=== PATIENT | female | born 1980 | race Caucasian/White ===

== ENCOUNTER 2024-01-25 10:02 | Outpatient (AMB) | payer BC, SELFPAY ==
--- NOTE | 2024-01-25 10:08 | MHC.OFFVIS ---
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 She normally gets regular periods and her previous normal. Before this was November 28 and it lasts 5 days and is normal to her. She has a history of 3 C sections with grown children and a tubal ligation done in [place]. 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 However this bleeding is crazy and is what she introduced at the beginning of the visit as why she is here. She started having some spotting at the beginning on November 25 but then she had an abnormal discharge and it has come and gone sometimes it is heavy sometimes it is light for the entire month. Patient is here with her middle adult daughter who she relied on for initial translation but after the 1st couple of sentences communication was done directly with myself in Maltese. [facility] Surgical History (Updated 01/25/24 @ 10:58 by Sharonda Gordillo CNM) History of tubal ligation History of section, low transverse Hx of abdominoplasty Social History (Updated 01/25/24 @ 10:13 by Gerhard Sargent [facility]) Alcohol intake: never Patient Tobacco Use Status: Never used Tobacco Sexually active: Yes Female Reproductive History Menstrual Age of Menarche: 9 Duration of menses: 3-5 days Date of last menstrual period: 12/27/23 control method: none Total pregnancies: 3 Full term: 3 Date of last pap smear: 01/30/14 (negative,per patient) History of abnormal pap smear: No History of abnormal mammogram: No (no previous mamm.) Physical Exam Vital Signs: Last Vital Signs BP 122/70 01/25/24 10:09 BMI result Body Mass Index 27.3 Const General: healthy appearing, comfortable, no acute distress, well developed and alert Nutritional Appearance: average body habitus Orientation/consciousness: patient oriented x3 Limitations: no limitations HEENT Head: Yes normocephalic Neck Neck: Yes normal visual inspection Chest Chest palpation & inspection: normal inspection of the chest Breast/axilla inspection: normal inspection of the breasts and normal inspection of the axillae Breast/axilla palpation: normal palpation of the breasts and normal palpation of the axillae Resp Effort & Inspection: normal respiratory effort GI Inspection: Yes normal to inspection, No Abdominal wall edema and No distended Palpation (GI): Soft to palpation and nontender Other: Patient has well-healed abdominal plasty scar. External exam within normal limits moderate amount of very dark blood emanating from cervix. Cervix long close thick nulliparous pink smooth mobile nontender uterus small anteverted mobile nontender adnexa nontender good tone with Kegel. General: Yes bladder normal to palpation External Female Exam: normal external appearance and normal appearance of the urethra Speculum Exam - Vagina: normal appearance of the vagina, normal palpation and normal vaginal discharge Speculum Exam - Cervix: normal appearance of the cervix, normal palpation and nontender Bimanual exam- vagina & uterus: normal bimanual exam, normal palpation, uterine size normal, bladder normal to palpation, consistency normal, normal palpation, uterine mobility normal, uterine shape normal, No Cervical tenderness present, non-tender and no cervical motion tenderness Bimanual Exam- Adnexa, other: normal adnexae, no masses, normal and No adnexal tenderness Neuro General: patient oriented x3 Assessment & Plan Assessment & Plan (1) Abnormal uterine bleeding (AUB): Code(s): N93.9 - Abnormal uterine and vaginal bleeding, unspecified Category: Medical (2) Cervical cancer screening: Code(s): Z12.4 - Encounter for screening for malignant neoplasm of cervix Category: Medical (3) Breast cancer screening: Code(s): Z12.39 - Encounter for other screening for malignant neoplasm of breast Category: Medical (4) Encounter for screening examination for sexually transmitted disease: Code(s): Z11.3 - Encounter for screening for infections with a predominantly sexual mode of transmission Category: Medical (5) Perimenopausal symptoms: Code(s): N95.1 - Menopausal and female climacteric states Category: Medical (6) History of tubal ligation: Code(s): Z98.51 - Tubal ligation status Category: Surgical (7) History of section, low transverse: Code(s): Z98.891 - History of uterine scar from previous surgery Category: Surgical (8) Hx of abdominoplasty: Code(s): Z98.890 - Other specified postprocedural states Category: Surgical Plan -----Discussed in this visit the following: healthy balanced diet, regular and consistent exercise, getting recommended health screens, doing the best she can for her particular health concerns, kegel exercises, pap smear screening and followup recommendations, mammography screening and SBE, normal changes in cycles in her life stage--- .Discussed her pattern of abnormal bleeding and the usual evaluation for it. Discussed the importance of ruling out any abnormal cells in her endometrium that are contributing to this. Discussed the ways of evaluating it, including pelvic ultrasound if appropriate, and an endometrial biopsy if appropriate. Also discussed the common causes of abnormal bleeding, including cancerous or precancerous cells, endometrial hyperplasia, anovulatory cycles, fibroids, and other potential causes. Discussed evaluation methods including endometrial biopsy to check the cells in the endometrial cavity, pelvic ultrasound to rule out any other abnormalities including fibroids, and any lab work if appropriate. Also discussed possible treatment to deal with the abnormal bleeding which may include medications, depending on age and other factors, that include control pills use of Provera or other medications, and Mirena IUDs. In certain cases there may be other treatment plans discussed as well. So her evaluation has started today with pelvic exam testing for infections and Pap smear though I did tell her the Pap may be inadequate because of her bleeding. She will have a pelvic ultrasound and in addition her screening mammogram and then she and I will have a visit after the pelvic ultrasound and I told her to anticipate that she will probably need an endometrial biopsy then and I did explain it to her. 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 Orders: Orders US pelvic and transvaginal Today N93.9 - Abnormal uterine and vaginal bleeding, unspecified, N95.1 - Menopausal and female climacteric states, Z11.3 - Encounter for screening for infections with a predominantly sexual mode of transmission, Z12.39 - Encounter for other screening for malignant neoplasm of breast, Z12.4 - Encounter for screening for malignant neoplasm of cervix, Z98.51 - Tubal ligation status, Z98.890 - Other specified postprocedural states, Z98.891 - History of uterine scar from previous surgery MM tomosynthesis screening BI Today N93.9 - Abnormal uterine and vaginal bleeding, unspecified, N95.1 - Menopausal and female climacteric states, Z11.3 - Encounter for screening for infections with a predominantly sexual mode of transmission, Z12.31 - Encounter for screening mammogram for malignant neoplasm of breast, Z12.39 - Encounter for other screening for malignant neoplasm of breast, Z12.4 - Encounter for screening for malignant neoplasm of cervix, Z98.51 - Tubal ligation status, Z98.890 - Other specified postprocedural states, Z98.891 - History of uterine scar from previous surgery Coding Level of Care Code New Pt Prev Care 40-64y(08168) Diagnoses Abnormal uterine bleeding (AUB) N93.9 Cervical cancer screening Z12.4 Breast cancer screening Z12.39 Encounter for screening examination for sexually transmitted disease Z11.3 Perimenopausal symptoms N95.1 History of tubal ligation Z98.51 History of section, low transverse Z98.891 Hx of abdominoplasty Z98.890
[2024-01-25 10:09] VITALS: BP 122/70; BMI 27.3
== END 2024-01-25 11:08 | disposition home or self-care (01) ==
PROVIDERS: Visit Provider Advanced Practice Midwife
DX: Z01.419 Encounter for gynecological examination (general) (routine) without abnormal findings (principal); N93.9 Abnormal uterine and vaginal bleeding, unspecified
CPT/HCPCS: 99386

== ENCOUNTER 2024-01-25 10:02 | Outpatient (REF) | payer BC, SELFPAY ==
[2024-01-26 15:06] LABS: BV Int Neg Control Negative (Negative); BV Int Pos Control Positive (Positive)
[2024-01-26 16:41] LABS: CT PCR NOT DETECTED (Not Detect.); NG PCR NOT DETECTED (Not Detect.)
[2024-02-03 03:37] LABS: HPV mRNA E6/E7 rflx Not Detected (Not Detected)
== END 2024-01-25 10:03 | disposition home or self-care (01) ==
LOC: HO.LAB 10:02
PROVIDERS: Visit Provider Advanced Practice Midwife
DX: Z01.419 Encounter for gynecological examination (general) (routine) without abnormal findings (principal); Z20.2 Contact with and (suspected) exposure to infections with a predominantly sexual mode of transmission
CPT/HCPCS: 0353U; 87480; 87510; 87624; 87660; 88142

== ENCOUNTER 2024-02-03 13:46 | Outpatient (REF) | payer BC, SELFPAY ==
--- NOTE | ~2024-02-03 | US_ITS ---
EXAMINATION: US PELVIS COMPLETE CLINICAL INFORMATION: Abnormal uterine bleeding COMPARISON: None TECHNIQUE: Transabdominal and transvaginal imaging was performed. FINDINGS: The uterus is of normal size and echogenicity measuring 12.0 x 5.2 x 4.9 cm. The endometrium measures at least 1.8 cm in thickness, recommend correlation with phase of menstrual cycle. Nabothian cysts in the cervix. Both ovaries are of normal echogenicity. The right measures 4.3 x 4.2 x 3.3 cm for a volume of 31 mL and is remarkable for a 3.4 cm benign functional cyst, no follow-up imaging recommended. The left measures 1.3 x 1.9 x 1.3 cm for a volume of 1.7 mL. There is no pelvic free fluid. US/US pelvic and transvaginal IMPRESSION: The endometrium measures at least 1.8 cm in thickness, recommend correlation with phase of menstrual cycle.
[2024-02-03 14:23] LABS: Hematocrit 32.9 % (37.0-47.0); Hemoglobin 11.4 g/dl (12.0-16.0); Mean Corpuscular HGB Conc 34.7 g/dl (31.0-35.0); Mean Corpuscular Hemoglobin 29.8 pg (27.0-33.0); Mean Corpuscular Volume 86.1 fL (80.0-98.0); Mean Platelet Volume 10.7 fL (9.4-12.3); Platelet Count 199 X10*3/uL (160-400); Red Blood Count 3.82 X10*6/uL (4.20-5.50); Red Cell Distribution Width 13.4 % (11.0-16.0); White Blood Count 6.1 X10*3/uL (4.8-10.8)
[2024-02-03 15:05] LABS: HCG Quantitative < 2 mIU/mL; TSH reflex Free T4 1.19 uIU/mL (0.32-4.0)
[2024-02-05 05:24] LABS: Prolactin 16.4 ng/mL
== END 2024-02-03 13:47 | disposition home or self-care (01) ==
LOC: HO.US 13:46
PROVIDERS: Absent Provider Obstetrics & Gynecology; Visit Provider Advanced Practice Midwife
DX: Z11.3 Encounter for screening for infections with a predominantly sexual mode of transmission (principal); N93.9 Abnormal uterine and vaginal bleeding, unspecified; N95.1 Menopausal and female climacteric states; Z98.890 Other specified postprocedural states; Z98.51 Tubal ligation status; Z98.891 History of uterine scar from previous surgery; Z79.899 Other long term (current) drug therapy
CPT/HCPCS: 36415; 58100; 76830; 76856; 84146; 84443; 84702; 85027

== ENCOUNTER 2024-02-03 14:40 | Outpatient (AMB) | payer BC, SELFPAY ==
--- NOTE | 2024-02-03 15:09 | A.OFFVIS_ITS ---
Vital Signs 02/03/24 15:18 Height 5 ft 4 in Weight 158 lb 11.725 oz BMI 27.2 BP 108/66 Intake Visit Reasons: Follow up lab and ultrasound Telegraph Dispatcher Required: Yes Telegraph Dispatcher Language: Professor Of Mathematics Name: Virginie JEFFERSON Information Interpreted: non-clinical & clinical Feed Management Advisor: Feed Management Advisor Present (Virginie JEFFERSON) Accompanied by: Spouse Allergies No Known Allergies Allergy (Verified 02/03/24 15:19) HPI Comments Details: Presenting with 6 week history of heavy vaginal bleeding associated with passage of blood clots and pelvic cramping . Co testing done in 01/25 still pending Ultrasound done today reports not available H&H done today 11.4/32.9 TSH, hCG negative Prolactin pending [facility] Surgical History History of tubal ligation History of section, low transverse Hx of abdominoplasty Social History Alcohol intake: never Patient Tobacco Use Status: Never used Tobacco Female Reproductive History Menstrual Age of Menarche: 9 Review of Systems Const All systems reviewed & are unremarkable except as noted in HPI and below Card Reports as per HPI Resp Reports as per HPI GI Reports as per HPI and Reports no additional complaints Reports as per HPI Physical Exam Vital Signs: Last Vital Signs BP 108/66 02/03/24 15:18 BMI result Body Mass Index 27.2 Const General: cooperative, healthy appearing and comfortable Chest Chest palpation & inspection: normal inspection of the chest and normal palpation of entire chest wall Breast/axilla inspection: normal inspection of the breasts and normal inspection of the axillae Breast/axilla palpation: normal palpation of the breasts, normal palpation of the axillae and no axillary lymphadenopathy Resp Effort & Inspection: normal respiratory effort Auscultation: clear to auscultation bilaterally Percussion: percussion normal Cardio Palpation: normal PMI Rate: regular rate Rhythm: regular rhythm Heart sounds: no murmurs and no rubs Peripheral pulses: Peripheral pulses 2+ throughout GI Inspection: Yes normal to inspection Palpation (GI): Soft to palpation, nontender, no guarding, not rigid and No hepatosplenomegaly present Percussion: Yes normal to percussion Auscultation: normal bowel sounds Rectal Exam - Female: deferred General: Yes bladder normal to palpation External Female Exam: No lesion Speculum Exam - Vagina: normal appearance of the vagina, normal palpation, normal vaginal discharge and not erythematous Speculum Exam - Cervix: normal appearance of the cervix, normal palpation and Other cervical findings present (No evidence of active vaginal bleeding) Bimanual exam- vagina & uterus: normal bimanual exam, normal palpation, uterine size normal, bladder normal to palpation, consistency normal and normal palpation Bimanual Exam- Adnexa, other: normal adnexae, no masses and no tenderness Office Procedures Endometrial Biopsy Details: The patient was counseled regarding the indication and benefits of endometrial sampling to rule out endometrial pathology including not limited to endometrial hyperplasia or endometrial cancer and others; The alternatives (Either do nothing vs. hysteroscopy D&C) & the risks were discussed with the patient including but not limited: pain, uterine perforation, bleeding, infection, possible injury to bladder, bowel, ureter, possible need for blood transfusion with all its possible risks. The patient verbalized understanding all questions answered and signed consent. HCG quantitative done in the office was negative The patient was placed into the dorsal lithotomy position; a speculum was inserted in the vagina. Using aseptic technique for the procedure, the cervix was cleansed with Betadine. The anterior lip of the cervix was grasped with a single tooth tenaculum. The uterus was sounded to 7 cm with a 4 mm Pipelle was used. Tissues samples were obtained and placed in formalin, in a patient labeled container and sent to the pathology department. At the end of the procedure, there was minimal bleeding noted The patient tolerated the procedure well and was discharged in good condition with the following instructions: Nothing in the vagina until the bleeding stops. No sex until the bleeding stops, to call if any of the following occurs: fever (>100.4), flu-like symptoms, abdominal pain, heavy bleeding, four smelling vaginal discharge. The patient was instructed to schedule a Follow up appointment in 2 weeks to [facility] pathology results of the biopsy and treatment options. This note was generated with a voice recognition program. Some errors may have been overlooked during the review of this note. Sometimes these errors may affect the content or meaning of a given sentence. [id number] Biopsy Assessment & Plan Assessment & Plan (1) Abnormal uterine bleeding (AUB): Comment: With anemia Code(s): N93.9 - Abnormal uterine and vaginal bleeding, unspecified Category: Medical Plan: Provera 10 mg p.o. q.d. sent to the patient's pharmacy for 30 days. [id number] iron sulfate 325 mg p.o. q.d. recommended the patient Mammogram ordered. Co testing recent done, GC and chlamydia taken CBC, TSH, prolactin, HCG, and pelvic ultrasound ordered today. Discussed with the patient the different causes of abnormal bleeding including thyroid disorders, uterine and ovarian pathology, endometrial hyperplasia, carcinoma and other potential causes. Discussed with the patient the work up including CBC (to r/o anemia), TSH, prolactin, pelvic Ultrasound, endometrial biopsy to r/o endometrial pathology. EMB done, see procedure note. All questions answered and the patient verbalized understanding. Instructed the patient to call or go to emergency room in case of heavy vaginal bleeding and to schedule an appointment for an endometrial biopsy in 2 weeks. Orders: Orders AMB Endometrial Biopsy Today N93.9 - Abnormal uterine and vaginal bleeding, unspecified MM screening mammo BI Today Z12.31 - Encounter for screening mammogram for malignant neoplasm of breast CT NG by PCR Today N93.9 - Abnormal uterine and vaginal bleeding, unspecified Surgical Today N93.9 - Abnormal uterine and vaginal bleeding, unspecified Medications: New medroxyprogesterone (Provera) 10 mg PO DAILY 10 days 30 tabs 0RF Coding Level of Care Code Est Pt Level 3 (85600) Procedure Only Diagnoses Abnormal uterine bleeding (AUB) N93.9 CPT Codes Endometrial Biopsy - CPT: 85701-Mctsbawyekk Biopsy ([id number])
[2024-02-03 15:18] VITALS: BP 108/66; BMI 27.2
== END 2024-02-03 15:37 | disposition home or self-care (01) ==
LOC: HO.HWS 14:40
PROVIDERS: Visit Provider Obstetrics & Gynecology
DX: N93.9 Abnormal uterine and vaginal bleeding, unspecified (principal)
CPT/HCPCS: 58100; 99213

== ENCOUNTER 2024-02-03 15:32 | Outpatient (REF) | payer BC, SELFPAY ==
[2024-02-03 18:42] LABS: CT PCR NOT DETECTED (Not Detect.); NG PCR NOT DETECTED (Not Detect.)
== END 2024-02-03 15:33 | disposition home or self-care (01) ==
LOC: HO.LNP 15:32
PROVIDERS: Visit Provider Obstetrics & Gynecology
DX: N93.9 Abnormal uterine and vaginal bleeding, unspecified (principal)
CPT/HCPCS: 0353U; 88305

== ENCOUNTER 2024-02-10 10:59 | Outpatient (REF) | payer BC, SELFPAY ==
[2024-02-10 11:47] LABS: Hematocrit 32.3 % (37.0-47.0); Mean Corpuscular HGB Conc 34.1 g/dl (31.0-35.0); Mean Corpuscular Hemoglobin 29.6 pg (27.0-33.0); Mean Corpuscular Volume 87.1 fL (80.0-98.0); Mean Platelet Volume 10.1 fL (9.4-12.3); Platelet Count 221 X10*3/uL (160-400); Red Blood Count 3.71 X10*6/uL (4.20-5.50); Red Cell Distribution Width 13.3 % (11.0-16.0); White Blood Count 6.9 X10*3/uL (4.8-10.8)
== END 2024-02-10 11:00 | disposition home or self-care (01) ==
LOC: HO.LAB 10:59
PROVIDERS: Visit Provider Obstetrics & Gynecology
DX: N93.9 Abnormal uterine and vaginal bleeding, unspecified (principal)
CPT/HCPCS: 36415; 85027

== ENCOUNTER 2024-02-10 10:59 | Outpatient (AMB) | payer BC, SELFPAY ==
--- NOTE | 2024-02-10 11:48 | MHC.OFFVIS ---
Vital Signs 02/10/24 11:51 Height 5 ft 4 in Weight 158 lb 11.725 oz BMI 27.2 BP 106/66 Intake Visit Reasons: EMB follow up Intellectual Property Counsel Required: Yes Intellectual Property Counsel Language: Car Ferrier Name: Virginie JEFFERSON Information Interpreted: non-clinical & clinical Real Time Trader: Real Time Trader Present (Virginie JEFFERSON) Accompanied by: Spouse Allergies No Known Allergies Allergy (Verified 02/10/24 11:52) HPI Comments Details: The patient is presenting for follow-up to discuss the results of her abnormal uterine bleeding workup and options of treatment. The following workup was done.: H&H= 1132.3 done today previous H&H on 02/02 was 11.4/32.9 TSH, prolactin, hCG, GC and chlamydia were negative. Endometrial biopsy pathology showed the following: Disordered proliferative endometrium with stromal and glandular breakdown; negative for atypia, hyperplasia or malignancy. Co testing was done but results are still pending Mammogram scheduled soon Pelvic ultrasound report still pending The patient has been on Provera 10 mg p.o. q.d. 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 q.d. [facility] Surgical History History of tubal ligation History of section, low transverse Hx of abdominoplasty Social History Alcohol intake: never Patient Tobacco Use Status: Never used Tobacco Female Reproductive History Menstrual Age of Menarche: 9 Review of Systems Const All systems reviewed & are unremarkable except as noted in HPI and below Reports as per HPI and Reports no additional complaints GI Reports no additional complaints Reports no additional complaints Physical Exam Vital Signs: Last Vital Signs BP 106/66 02/10/24 11:51 BMI result Body Mass Index 27.2 Assessment & Plan Assessment & Plan (1) Abnormal uterine bleeding (AUB): Comment: With anemia Code(s): N93.9 - Abnormal uterine and vaginal bleeding, unspecified Category: Medical Plan: Discussed with the patient the results of the work up done and options of treatment including Lysteda, BCP's, Mirena IUD, endometrial ablation and hysterectomy. All pros, cons, risks and benefits if each option was discussed with the patient and the patient decided to proceed with hysterectomy Recommended the next step is a hysterectomy since ablation failed, discussed with the patient the different types of hysterectomy including, laparoscopic, robotic assisted, abdominal ,supracervical, DEYANIRA, TVH, TLH, TSH. All pros, cons, risks benefits of laparocopic and robotic versus open approach is were discussed with the patient. Explained to the patient that the morbidity of minimally invasive approaches is less than other approaches, in addition explained that neither [facility], nor a minimally invasive Gynecology trained specialist, are available at [facility]; after our discussion, the patient decided to be referred for minimally invasive hysterectomies at a tertiary care center, either [facility] or [facility]. All questions answered the patient verbalized understanding. Instructions given to patient to continue on Provera 10 mg p.o. q.d., iron sulfate 325 mg p.o. q.d. and to call or go to emergency room in case of persistent or worsening of her vaginal bleeding. Instructed the patient to call our office back in case a referral appointment is not scheduled, missed or canceled so that we will assist on rescheduling another appointment, the patient verbalized understanding agreed with the plan. Orders: Orders Complete Blood Count no Diff Today N93.9 - Abnormal uterine and vaginal bleeding, unspecified Coding Level of Care Code Est Pt Level 3 (19175) Diagnoses Abnormal uterine bleeding (AUB) N93.9
[2024-02-10 11:51] VITALS: BP 106/66; BMI 27.2
== END 2024-02-10 12:18 | disposition home or self-care (01) ==
PROVIDERS: Visit Provider Obstetrics & Gynecology
DX: N93.9 Abnormal uterine and vaginal bleeding, unspecified (principal)
CPT/HCPCS: 99213

== ENCOUNTER 2024-02-17 10:48 | Outpatient (REF) | payer BC, SELFPAY ==
--- NOTE | ~2024-02-17 | MM_ITS ---
EXAMINATION: MM SCREENING DIGITAL BREAST TOMOSYNTHESIS, BILATERAL CLINICAL INFORMATION: Screening. Asymptomatic. COMPARISON: Mammography: There are no prior mammograms for comparison. TECHNIQUE: Digital breast tomosynthesis is performed in both the craniocaudal and mediolateral oblique views along with computer-aided detection (CAD). Synthesized 2D images are generated from the tomosynthesis. FINDINGS: There are scattered areas of fibroglandular density (ACR BI-RADS breast composition Category b). There are no significant masses, abnormal calcifications, or other abnormalities. MM/MM tomosynthesis screening BI IMPRESSION: No mammographic evidence of malignancy. ASSESSMENT: BI-RADS BI-RADS 1 - Negative RECOMMENDATION: Routine annual mammography screening. 1 year F/U This examination should not preclude the clinical evaluation of a suspicious palpable abnormality. This patient's information was entered into a reminder system with a target due date for their next mammogram.
== END 2024-02-17 10:49 | disposition home or self-care (01) ==
LOC: HO.MAMMO 10:48
PROVIDERS: Visit Provider Advanced Practice Midwife
DX: Z12.31 Encounter for screening mammogram for malignant neoplasm of breast (principal)
CPT/HCPCS: 77063; 77067

== ENCOUNTER → 2024-02-17 11:00 | Outpatient (BNV) | payer BC, SELFPAY | PROVIDERS: Visit Provider Radiology Diagnostic Radiology | DX: Z12.31 Encounter for screening mammogram for malignant neoplasm of breast (principal) | CPT/HCPCS: 77063; 77067 ==

== ENCOUNTER 2024-02-24 10:20 | Outpatient (AMB) | payer BC, SELFPAY ==
--- NOTE | 2024-02-24 10:09 | A.OFFVIS_ITS ---
Intake Visit Reasons: US follow up Allergies No Known Allergies Allergy (Verified 02/10/24 11:52) [facility] Surgical History History of tubal ligation History of section, low transverse Hx of abdominoplasty Social History Alcohol intake: never Patient Tobacco Use Status: Never used Tobacco Female Reproductive History Menstrual Age of Menarche: 9 Telehealth Telehealth Telehealth Platform: Telephone Location of provider rendering services: practice address Location of patient: other (Patient was actually at her work site unable to do video telephone signal not great) Patient Identification confirmed using: Name, : Yes Telehealth method: voice only Patient verbally consented to treatment: Yes Patient verbally consented to billing insurance company: Yes Patient informed of any privacy concerns related to visit: Yes Minutes spent on Phone/Video with Pt.: 14 Results Reviewed Results Reviewed: e/Sex: 43/F Attending: Sharonda Gordillo CNM : 1980 Submitted by: Sharonda Gordillo CNM Copies to: MR #: [id number] Status: DEP REF Collected: 01/25/24 Location: .LAB Received: 01/26/24 Interpretation Unsatisfactory Insufficient cellular material due to excessive blood. HPV mRNA E6/E7: NOT DETECTED This assay detects E6/E7 viral messenger RNA (mRNA) from 14 high-risk HPV types (16, 18, 31, 33, 35, 39, 45, 51, 52, 56, 58, 59, 66, 68) HPV testing performed by [facility], [place], [place]. See reference laboratory portion of the EMR for entire report. Clinical Information LMP: 12/27/23 Previous PAP test: 2013, WNL Material Received ThinPrep-Cervical Electronically Signed By: Marcella Mahmood 02/12/24 1886 The Pap Test is a screening procedure with the inherent possibility of both false negative and false positive results. Results should be interpreted in the context of historic and current clinical findings. Reliability of the Pap Test is enhanced by performing the test on a regular repetitive basis. Patient: Yamilet Robison Age/Sex: 43/F MR#: [id number] Page [address] of [address] [address] Ultrasound Report Signed Patient: Yamilet Robison MR#: [id number] : 1980 Acct:[id number] Age/Sex: 43 / F ADM Date: 02/03/24 Loc: .[place] Attending Dr: Sharonda Gordillo CNM Ordering Physician: Sharonda Gordillo CNM Date of Service: 02/03/24 Procedure(s): US pelvic and transvaginal Accession Number(s): [id number] cc: Sharonda Gordillo CNM~ EXAMINATION: US PELVIS COMPLETE CLINICAL INFORMATION: Abnormal uterine bleeding COMPARISON: None TECHNIQUE: Transabdominal and transvaginal imaging was performed. FINDINGS: The uterus is of normal size and echogenicity measuring 12.0 x 5.2 x 4.9 cm. The endometrium measures at least 1.8 cm in thickness, recommend correlation with phase of menstrual cycle. Nabothian cysts in the cervix. Both ovaries are of normal echogenicity. The right measures 4.3 x 4.2 x 3.3 cm for a volume of 31 mL and is remarkable for a 3.4 cm benign functional cyst, no follow-up imaging recommended. The left measures 1.3 x 1.9 x 1.3 cm for a volume of 1.7 mL. There is no pelvic free fluid. US/US pelvic and transvaginal IMPRESSION: The endometrium measures at least 1.8 cm in thickness, recommend correlation with phase of menstrual cycle. Dictated By: Alison Gamble MD Signed By: <Electronically signed by Alison Gamble MD in OV> 02/10/24 1813 DD/ 1429 TD/TT: [employer] Spr[employer]: Name: Yamilet Robison Age/Sex: 43/F Attending: Arun Williamson MD : 1980 Submitted by: Arun Williamson MD Copies to: MR #: [id number] Status: DEP REF Collected: 02/03/24 Location: [facility] Received: 02/04/24 Diagnosis Endometrium, biopsy: Disordered proliferative endometrium with stromal and glandular breakdown; negative for atypia, hyperplasia or malignancy. Clinical History AUB Microscopic Description Microscopic sections reviewed. Material Received EMB Gross Description Received in formalin labeled ?EMB? is a 2.0 x 2.0 x 1.0 cm aggregate of multiple irregular and tubular cast fragments of stroud-brown tissue, mucus and blood, submitted in toto in cassettes A1 and A2. CEDS NOTE: Unless otherwise stated, all tissue is formalin-fixed and paraffin- embedded. Some or all of the immunohistochemical tests reported herein may have been developed and their performance characteristics determined by [facility]. They have not been cleared or approved by the U.S. Food and Drug Administration (FDA). However, the FDA has determined that such clearance or approval is not necessary. This laboratory is certified under the Clinical Laboratory Improvement Amendments of 1988 (CLIA) as qualified to perform high complexity clinical laboratory testing. Electronically Signed By: Tiffany Boyd MD 02/08/24 0854 Patient: Yamilet Robison Age/Sex: 43/F MR#: [id number] Page 1 of 1 Assessment & Plan Assessment & Plan (1) Abnormal uterine bleeding (AUB): Comment: With anemia Code(s): N93.9 - Abnormal uterine and vaginal bleeding, unspecified Category: Medical (2) Cervical cancer screening: Comment: 01/25/2024 Pap is unsatisfactory secondary too much blood though HPV is negative. it will need to be repeated Code(s): Z12.4 - Encounter for screening for malignant neoplasm of cervix Category: Medical Plan I reviewed with patient everything that have been discussed in my visit with her and the plan for workup of her dysfunctional bleeding including the ultrasound this was the previously scheduled but missed appointment for review of that ultrasound however the day that she had the ultrasound she was bleeding and sought a more urgent visit with Dr. Williamson on the same day as the ultrasound the result was not available to him. But he proceeded with an entire workup including endometrial biopsy and plan for evaluation and care see his visits B as already spoken with the patient about the results of the endometrial biopsy and discussed her options with her. I did review these options again with the patient. Today the plan and referral to [facility] for discussion of surgical options was arranged by medical territory manager for Dr. Williamson and the patient was given an appointment at [facility] for March 14, just half an hour ago. I reviewed patient's understanding of this and I reviewed the ultrasound with her and what her understanding of the plan of care is. She has stopped the Provera a about a week ago and she also is barely bleeding anymore. She said she did not have any further questions. Coding Level of Care Code Tele Est Pt Level 3 (51044) Diagnoses Abnormal uterine bleeding (AUB) N93.9 Cervical cancer screening Z12.4 Time Spent (min) 22 Comment 6 cr/14 speaking w pt/2 charting
== END 2024-02-24 11:18 | disposition home or self-care (01) ==
LOC: HO.HWSM 10:20
PROVIDERS: Visit Provider Advanced Practice Midwife
DX: N93.9 Abnormal uterine and vaginal bleeding, unspecified (principal); Z12.4 Encounter for screening for malignant neoplasm of cervix
CPT/HCPCS: 99442

== ENCOUNTER → 2024-02-24 10:20 | Outpatient (BNVA) | payer BC, SELFPAY | PROVIDERS: Visit Provider Advanced Practice Midwife ==

== ENCOUNTER 2025-02-22 10:29 | Outpatient (REF) | payer BC, SELFPAY | END 2025-02-22 10:30 | disposition home or self-care (01) | LOC: HO.MAMMO 10:29 | PROVIDERS: Visit Provider Advanced Practice Midwife | DX: Z12.31 Encounter for screening mammogram for malignant neoplasm of breast (principal) | CPT/HCPCS: 77063; 77067 ==

== ENCOUNTER → 2025-02-22 11:00 | Outpatient (BNV) | payer BC, SELFPAY | PROVIDERS: Visit Provider Internal Medicine | DX: Z12.31 Encounter for screening mammogram for malignant neoplasm of breast (principal) | CPT/HCPCS: 77063; 77067 ==